=== PATIENT | male | born 1980 | race Caucasian/White ===

== ENCOUNTER 2017-04-16 03:53 | Emergency (ER) | payer BC ==
[~2017-04-16] VITALS: Ht 185.4 cm; Wt 85.5 kg
[~2017-04-16 03:53] MED LIST: FELDENE10 MG PO; FLEXERIL 1010 MG/TAB PO; LORTAB 5/500 501 TAB PO; MEDROL 4MG DOSPA4 MG PO; NAPROSYN500 MG PO; NO HOME MEDICATIONS; NORCO 325 MG-51 TAB PO; PERCOCET 325 MG1 TA2 PO; ULTRAM 50MG TAB50 MG PO; VALIUM5 MG PO
[2017-04-16 03:57] VITALS: TEMP 97.8
[2017-04-16] MEDS ORDERED: NORCO 325 MG-7.1 TAB PO (04:24)
[2017-04-16] MEDS ORDERED: VALIUM 5MG T5 MG/TAB PO (04:24)
[2017-04-16 06:58] VITALS: BP 119/73; PULSE 63
== END 2017-04-16 06:58 | disposition home or self-care (01) ==
LOC: COL.ER 03:53
DX: M54.16 Radiculopathy, lumbar region (principal)
CPT/HCPCS: J1170; J1885; J2060

== ENCOUNTER 2017-05-15 08:50 | Emergency (ER) | payer BC ==
[~2017-05-15] VITALS: Ht 185.4 cm; Wt 84.1 kg
[~2017-05-15 08:50] MED LIST changes: +NORCO 325 MG-7.1 TAB PO; +VALIUM 5MG T5 MG/TAB PO
[2017-05-15 08:55] VITALS: TEMP 98
[2017-05-15 09:41] LABS: COLLECTION METHOD CLEAN CATCH
[2017-05-15 09:51] LABS: MUCOUS Present /lpf; PH 7 (5-8); SQUAMOUS EPITHELIAL 0-2 /hpf; URINE APPEARANCE Clear; URINE BACTERIA None Seen /hpf; URINE BILIRUBIN Negative (NEGATIVE); URINE BLOOD Negative (NEGATIVE); URINE COLOR Straw; URINE GLUCOSE Negative (NEGATIVE); URINE KETONE Negative (NEGATIVE); URINE LEUKOCYTE ESTERASE Negative (NEGATIVE); URINE PROTEIN(semi-quant) Negative (NEGATIVE); URINE RBC 0-2 /hpf; URINE UROBILINOGEN Negative (NEGATIVE); URINE WBC None Seen /hpf
[2017-05-15 10:17] VITALS: BP 124/76; PULSE 73
[2017-05-15] MEDS ORDERED: NORCO 325 MG-51 TAB PO (10:22)
== END 2017-05-15 10:29 | disposition home or self-care (01) ==
LOC: COL.ER 08:50
PROVIDERS: Nurse Practitioner
DX: G89.29 Other chronic pain (principal); M54.5 Low back pain; Z98.890 Other specified postprocedural states; X50.0XXA Overexertion from strenuous movement or load, initial encounter
CPT/HCPCS: J1170; J2360

== ENCOUNTER 2017-10-15 18:20 | Emergency (ER) | payer BC ==
[~2017-10-15] VITALS: Ht 185.4 cm; Wt 81.8 kg
[2017-10-15 18:24] VITALS: BP 144/76; TEMP 97.7
[2017-10-15] MEDS ORDERED: NORCO 325 MG-51 TAB PO (20:26)
[2017-10-15 20:33] VITALS: PULSE 76
== END 2017-10-15 20:33 | disposition home or self-care (01) ==
LOC: COL.ER 18:20
DX: G89.29 Other chronic pain (principal); M54.5 Low back pain
CPT/HCPCS: J1885; J2360